=== PATIENT | male | born 1955 | race Caucasian/White ===

== ENCOUNTER 2018-01-16 18:59 | Emergency (ER) | payer OTHER ==
--- NOTE | 2018-01-16 20:06 | ER Document Report ---
ED Medical Screen (RME) - General Chief Complaint: Blood Pressure Problem Stated Complaint: BLOOD PRESSURE ISSUES Time Seen by Provider: 01/16/18 19:52 Notes: RAPID MEDICAL EVALUATION DISCLOSURE I have seen this patient as part of a Rapid Medical Evaluation and, if applicable, placed any initially appropriate orders. The patient will be seen and fully evaluated, including a full history and physical exam, by a provider ( in Main ED or Fast Track) when a room becomes available. 62-year-old male here with complaints of abnormal blood pressures over the past few days. On , he received "plasmapheresis" for his hemochromatosis and the next morning he took his regularly scheduled twice daily benazepril but shortly thereafter became lightheaded/dizzy. He immediately went home and checked his blood pressure and it was 90s systolic which is abnormal for him. As the day progressed, his blood pressure gradually climbed back to his baseline of around 140 systolic. He did not take 1 Wednesday night because he was afraid it would bottom him out again so the next morning, he went to urgent care and his blood pressure there was 190s over 110s and he was instructed by the doctor to go ahead and take his benazepril however throughout the course of the day his blood pressure again went down into the 90s and he became lightheaded/dizzy. This evening, he took a benazepril at 6 PM (2 hours ago) and came in because he is unsure why his blood pressures are so volatile. Of note, he infrequently receives plasmapheresis and was told by the urgent care doctor that this may be the reason for his blood pressure abnormalities. He does not currently have any lightheadedness/dizziness. Denies having any chest pain shortness of breath headaches vision change numbness tingling weakness nausea vomiting. EXAM CTAB RRR TRAVEL OUTSIDE OF THE [place] IN LAST 30 DAYS: No - Related Data Allergies/Adverse Reactions: No Known Allergies Allergy (Unverified 11/28/10 09:09) Past Medical History - Social History Chew tobacco use (# tins/day): Yes Frequency of alcohol use: Occasional Drug Abuse: None - Past Medical History Cardiac Medical History: Reports: Hx Hypercholesterolemia, Hx Hypertension - meds x 6-8 yrs Denies: Hx Coronary Artery Disease, Hx Heart Attack Pulmonary Medical History: Reports: Hx Pneumonia Denies: Hx Asthma, Hx Bronchitis, Hx COPD Neurological Medical History: Denies: Hx Cerebrovascular Accident, Hx Seizures Renal/ Medical History: Denies: Hx Peritoneal Dialysis GI Medical History: Denies: Hx Hepatitis, Hx Hiatal Hernia, Hx Ulcer Musculoskeltal Medical History: Reports Hx Arthritis - knees,neck Infectious Medical History: Denies: Hx Hepatitis Past Surgical History: Reports: Hx Orthopedic Surgery - back, shoulder. Denies : Hx Open Heart Surgery, Hx Pacemaker - Immunizations Hx Diphtheria, Pertussis, Tetanus Vaccination: Yes Physical Exam - Vital signs Vitals: Temp Pulse Resp BP Pulse Ox 98.5 F 103 H 16 191/89 H 100 01/16/18 19:04 01/16/18 19:04 01/16/18 19:04 01/16/18 19:04 01/16/18 19:04 Course - Vital Signs Vital signs: Temp Pulse Resp BP Pulse Ox 98.5 F 103 H 16 191/89 H 100 01/16/18 19:04 01/16/18 19:04 01/16/18 19:04 01/16/18 19:04 01/16/18 19:04
[2018-01-16 20:30] LABS: ABSOLUTE EOSINOPHILS # (AUTO) 0.2 10^3/uL (0.0-0.6); ABSOLUTE LYMPHOCYTES (AUTO) 1.2 10^3/uL (0.5-4.7); ABSOLUTE MONOCYTES (AUTO) 0.5 10^3/uL (0.1-1.4); ABSOLUTE NEUT (AUTO) 3.4 10^3/uL (1.7-8.2); BASOPHILS % (AUTO) 0.9 % (0-2); EOSINOPHILS % (AUTO) 3.6 % (0-6); HEMOGLOBIN 12.7 g/dL (13.5-17.0); LYMPHOCYTES % (AUTO) 22.9 % (13-45); MEAN CORPUSCULAR HEMOGLOBIN 35.7 pg (27.0-33.4); MEAN CORPUSCULAR HGB CONC 35.2 g/dL (32.0-36.0); MEAN CORPUSCULAR VOLUME 101 fl (80-97); MONOCYTES % (AUTO) 9.4 % (3-13); PLATELET COUNT 159 10^3/uL (150-450); RED BLOOD COUNT 3.55 10^6/uL (4.35-5.55); RED CELL DISTRIBUTION WIDTH 14.1 % (11.5-14.0); SEGMENTED NEUTROPHILS % (AUTO) 63.2 % (42-78); TOTAL CELLS COUNTED % (AUTO) 100 %; WHITE BLOOD COUNT 5.4 10^3/uL (4.0-10.5)
[2018-01-16 20:53] LABS: ANION GAP 15 (5-19); BLOOD UREA NITROGEN 18 mg/dL (7-20); CALCIUM 9.6 mg/dL (8.4-10.2); CARBON DIOXIDE 27 mmol/L (22-30); CHLORIDE 97 mmol/L (98-107); GLUCOSE 155 mg/dL (75-110); POTASSIUM 4.1 mmol/L (3.6-5.0); SODIUM 138.5 mmol/L (137-145)
--- NOTE | 2018-01-16 21:49 | ER Document Report ---
ED General - General Chief Complaint: Blood Pressure Problem Stated Complaint: BLOOD PRESSURE ISSUES Time Seen by Provider: 01/16/18 19:52 Notes: Patient is a 62-year-old male with a past medical history of hemochromatosis who receives phlebotomy, last phlebotomy occurred several days ago who presents with concerns of a variable blood pressure and intermittent periods of lightheadedness. Patient states that since having phlebotomy performed 2 days ago he has had 2 episodes in which his blood pressure dropped into the 90s systolic and he became lightheaded, somewhat jittery and felt generally unwell. He states that prior to both of these episodes he took his SUSIE inhibitor. He states that he went to an urgent care yesterday and given that his blood pressure was elevated in urgent care he was encouraged to continue taking his medication but when he took the Benzapril again he had a recurrence of his symptoms. He states that he feels like when he had a phlebotomy performed, he had more blood removed than normal. He has not followed up with his primary care doctor regarding today's concerns although he did attempt to contact them. He denies any chest pain, shortness of breath, or any current symptoms at this time. Nothing seems to improve or worsen his symptoms. TRAVEL OUTSIDE OF THE [place] IN LAST 30 DAYS: No - Related Data Allergies/Adverse Reactions: No Known Allergies Allergy (Unverified 11/28/10 09:09) Past Medical History - General Information source: Patient - Social History Smoking Status: Never Smoker Chew tobacco use (# tins/day): Yes Frequency of alcohol use: Occasional Drug Abuse: None Lives with: Alone Family History: Reviewed & Not Pertinent Patient has suicidal ideation: No Patient has homicidal ideation: No - Past Medical History Cardiac Medical History: Reports: Hx Hypercholesterolemia, Hx Hypertension - meds x 6-8 yrs Denies: Hx Coronary Artery Disease, Hx Heart Attack Pulmonary Medical History: Reports: Hx Pneumonia Denies: Hx Asthma, Hx Bronchitis, Hx COPD Neurological Medical History: Denies: Hx Cerebrovascular Accident, Hx Seizures Renal/ Medical History: Denies: Hx Peritoneal Dialysis GI Medical History: Denies: Hx Hepatitis, Hx Hiatal Hernia, Hx Ulcer Musculoskeltal Medical History: Reports Hx Arthritis - knees,neck Infectious Medical History: Denies: Hx Hepatitis Past Surgical History: Reports: Hx Orthopedic Surgery - back, shoulder. Denies : Hx Open Heart Surgery, Hx Pacemaker - Immunizations Hx Diphtheria, Pertussis, Tetanus Vaccination: Yes Review of Systems - Review of Systems Notes: Constitutional: Negative for fever. HENT: Negative for sore throat. Eyes: Negative for visual changes. Cardiovascular: Negative for chest pain. Respiratory: Negative for shortness of breath. Gastrointestinal: Negative for abdominal pain, vomiting or diarrhea. Genitourinary: Negative for dysuria. Musculoskeletal: Negative for back pain. Skin: Negative for rash. Neurological: Negative for headaches, weakness or numbness. 10 point ROS negative except as marked above and in HPI. Physical Exam - Vital signs Vitals: Temp Pulse Resp BP Pulse Ox 98.5 F 103 H 16 191/89 H 100 01/16/18 19:04 01/16/18 19:04 01/16/18 19:04 01/16/18 19:04 01/16/18 19:04 Interpretation: Hypertensive, Tachycardic Notes: PHYSICAL EXAMINATION: GENERAL: Well-appearing, well-nourished and in no acute distress. HEAD: Atraumatic, normocephalic. EYES: Pupils equal round and reactive to light, extraocular movements intact, sclera anicteric, conjunctiva are normal. ENT: nares patent, oropharynx clear without exudates. Moist mucous membranes. NECK: Normal range of motion, supple without lymphadenopathy LUNGS: Breath sounds clear to auscultation bilaterally and equal. No wheezes rales or rhonchi. HEART: Regular rate and rhythm without murmurs ABDOMEN: Soft, nontender, normoactive bowel sounds. No guarding, no rebound. No masses appreciated. EXTREMITIES: Normal range of motion, no pitting or edema. No cyanosis. NEUROLOGICAL: No focal neurological deficits. Moves all extremities spontaneously and on command. PSYCH: Normal mood, normal affect. SKIN: Warm, Dry, normal turgor, no rashes or lesions noted. Course - Re-evaluation Re-evalutation: 01/16/18 21:46 Patient presents with intermittent episodes of lightheadedness associated with hypotension when he takes his Benzapril after having phlebotomy for hemochromatosis. Patient is currently symptomatic and has not had a recurrence of his lightheadedness in over 24 hours. Clinical history is most consistent with the patient likely having some excessive phlebotomy for hemochromatosis as he is anemic and CBC checked today. His blood pressures are mildly hypertensive here as he has not taken the Benzapril today but likewise he remains asymptomatic. On both instances in which his blood pressure dipped into the 90s and he became lightheaded he had just taken the Benzapril. I have encouraged him to hold this medication until he follows up with his primary care doctor and has a recheck of his CBC to ensure normalization of his blood count. I have emphasized that blood pressure is a long-term risk factor and there is no immediate urgency or emergency if he has hypertension for several days. The remainder of his examination is otherwise unremarkable. He denies any ongoing complaints. At this time will discharge with return precautions and follow-up recommendations. Verbal discharge instructions given a the bedside and opportunity for questions given. Medication warnings reviewed. Patient is in agreement with this plan and has verbalized understanding of return precautions and the need for primary care follow-up in the next 24-72 hours. - Vital Signs Vital signs: Temp Pulse Resp BP Pulse Ox 98.5 F 103 H 16 160/98 H 99 01/16/18 19:04 01/16/18 19:04 01/16/18 21:49 01/16/18 21:49 01/16/18 21:49 - Laboratory Result Diagrams: 01/16/18 10:20 01/16/18 10:20 Laboratory results interpreted by me: 01/16/18 01/16/18 10:20 10:20 RBC 3.55 L Hgb 12.7 L Hct 36.0 L MCV 101 H MCH 35.7 H RDW 14.1 H Chloride 97 L Glucose 155 H - EKG Interpretation by Me Additional EKG results interpreted by me: 01/17/18 03:36 Normal sinus rhythm. Rate 78. No ST elevations or depressions. QTC is 397. Discharge - Discharge Clinical Impression: Lightheadedness, Essential hypertension Condition: Good Disposition: HOME, SELF-CARE Additional Instructions: Please continue to hold your Benzapril until you have had a recheck of your blood counts with her primary care doctor and have not had any further episodes of lightheadedness for at least 1 week. Return to the emergency department he developed chest pain, shortness of breath, pass out, weakness, numbness, or have any other symptoms that are worrisome to you. Referrals: TEAGAN MELGAR MD [Primary Care Provider] - Follow up as needed
[2018-01-16 22:00] VITALS: BP 160/98
--- NOTE | 2018-01-16 22:06 | EKG REPORT ---
SEVERITY:- NORMAL ECG - SINUS RHYTHM : Confirmed by: Wero Lindsey MD 16-Jan-2018 22:05:54
== END 2018-01-16 21:58 | disposition home or self-care (01) ==
LOC: ER 18:59
DX: R03.0 Elevated blood-pressure reading, without diagnosis of hypertension (principal); R42 Dizziness and giddiness; I10 Essential (primary) hypertension; E78.00 Pure hypercholesterolemia, unspecified
CPT/HCPCS: 36415; 80048; 85025; 93005; 93010; 99284